=== PATIENT | male | born 1950 | race Caucasian/White ===

== ENCOUNTER → 2017-01-05 | Outpatient (CLI) | payer OTHER, MEDICARE | LOC: CIMAGING 08:46 | PROVIDERS: ATTEND Physician Assistant | DX: B19.20 Unspecified viral hepatitis C without hepatic coma (principal); R93.8 Abnormal findings on diagnostic imaging of other specified body structures | CPT/HCPCS: 76705-PO ==

== ENCOUNTER → 2017-01-26 | Outpatient (CLI) | payer OTHER, MEDICARE ==
[~2017-01-26] MED LIST: IOPAMIDOL (ISOVUE-300) 100 ML BTL ONE
== END ==
LOC: CIMAGING 09:15
PROVIDERS: ATTEND Physician Assistant
DX: R16.0 Hepatomegaly, not elsewhere classified (principal)
CPT/HCPCS: 74170; Q9967

== ENCOUNTER 2017-02-02 08:27 | Outpatient (CLI) | payer OTHER, MEDICARE ==
[2017-02-02] MEDS ORDERED: MIDAZOLAM 2 MG/2 ML VIAL ONE (08:50)
[2017-02-02] MEDS ORDERED: fentaNYL 100 MCG/2 ML INJ ONE (08:50)
[2017-02-02] MEDS ORDERED: LIDOCAINE 1% 300 MG/30 ML SDV ONE (09:19)
== END 2017-02-02 13:40 | disposition home or self-care (01) ==
LOC: FIMAGING 08:27
PROVIDERS: ATTEND Physician Assistant
PROC: 0FB03ZX Excision of Liver, Percutaneous Approach, Diagnostic (ICD-10-PCS; principal; 2017-02-02 10:45)
DX: D13.4 Benign neoplasm of liver (principal); B18.2 Chronic viral hepatitis C
CPT/HCPCS: 47000; 76942; J2250; J3010

== ENCOUNTER → 2017-03-02 | Outpatient (CLI) | payer OTHER, MEDICARE | LOC: BHCLAF 08:30 | PROVIDERS: ATTEND Internal Medicine | DX: I48.91 Unspecified atrial fibrillation (principal) | CPT/HCPCS: 93306-PO ==

== ENCOUNTER → 2017-07-20 | Outpatient (CLI) | payer OTHER, MEDICARE | LOC: CIMAGING 09:21 | PROVIDERS: ATTEND Internal Medicine | DX: R93.2 Abnormal findings on diagnostic imaging of liver and biliary tract (principal); B19.20 Unspecified viral hepatitis C without hepatic coma | CPT/HCPCS: 74170; Q9967 ==

== ENCOUNTER 2017-08-24 08:32 | Outpatient (CLI) | payer OTHER, MEDICARE ==
[2017-08-24] MEDS ORDERED: FLUMAZENIL 0.5 MG/5 ML MDV IVP PRN (09:14)
[2017-08-24] MEDS ORDERED: MIDAZOLAM 2 MG/2 ML VIAL IVP PRN (09:14)
[2017-08-24] MEDS ORDERED: NALOXONE HCL 0.4 MG/ML INJ IVP PRN (09:14)
[2017-08-24] MEDS ORDERED: fentaNYL 100 MCG/2 ML INJ IVP PRN (09:14)
[2017-08-24] MEDS ORDERED: NS 1,000 ML IV SCH (09:15)
[2017-08-24 09:40] VITALS: TEMP 99
--- NOTE | 2017-08-24 10:43 | PDGENHP ---
History & Physical Chief Complaint: HEPATIC MASS, HEP C History of Present Illness: ENLARGING HEPATIC MASS, HEP C Pertinent Past, Social, Family History: HEP C, AFIB, PRIOR HEP MASS BX, SMOKER, Relevant Physical Exam: RUL CRACKELS, SOFT ABDOMEN Cardiorespiratory Assessment: FEW CRACKELS, RRR,
--- NOTE | 2017-08-24 10:44 | PDPROPOC ---
Sedation Plan of Care Sedation Plan of Care: vital signs stable, mental status noted, patient educated of risks, benefits, alternatives, patient can tolerate sedation ASA Classification: ASA 2 Planned drugs: fentanyl, midazolam Mallampati Score: Class 1 Mallampati Reference Image: Patient passed 3-3-2 rule?: Yes
[2017-08-24 10:51] LABS: INR 1.04 (0.83-1.16); PROTIME(PATIENT) 13.8 SEC (12.0-15.0)
[2017-08-24] MEDS ORDERED: ONDANSETRON 4 MG/2 ML VIAL IVP PRN (12:00)
[2017-08-24] MEDS ORDERED: oxyCODONE IR 5 MG TAB PO PRN (12:00)
--- NOTE | 2017-08-24 12:05 | PDRADPN ---
Radiology Procedure Note Date of Procedure: 08/24/17 Radiologist: Dewayne Gamez Anesthesia: IV Sedation (VERSED AND FENTANYL), Local (Specify) (LIDOCAINE) Pre-op Diagnosis: LIVER MASS, HEP C Post-op Diagnosis: LIVER MASS, HEP C Indication: LIVER MASS INCREASING, HEP C Procedure: CT LIVER BIOPSY Finding(s): LIVER MASS BX RIGHT LOBE INFERIORLY Inf/Abcess present in the surg proc area at time of surgery?: No Depth: Superfical (Skin SQ) EBL: Minimal
[2017-08-24 13:33] VITALS: RESP 18
[2017-08-24 14:51] VITALS: BP 134/83; PULSE 69; O2SAT 92
== END 2017-08-24 15:12 | disposition home or self-care (01) ==
LOC: FIMAGING 08:32
PROVIDERS: ATTEND Internal Medicine
PROC: 0FB03ZX Excision of Liver, Percutaneous Approach, Diagnostic (ICD-10-PCS; principal; 2017-08-24 12:10)
DX: B18.2 Chronic viral hepatitis C (principal)
CPT/HCPCS: 47000; 77012; 88313; 99152; 99153; J2250; J3010; J2310

== ENCOUNTER → 2017-12-07 | Outpatient (CLI) | payer OTHER, MEDICARE | LOC: CIMAGING 09:13 | PROVIDERS: ATTEND Internal Medicine | DX: K76.89 Other specified diseases of liver (principal); R91.1 Solitary pulmonary nodule | CPT/HCPCS: 74177; Q9967 ==

== ENCOUNTER → 2018-05-24 | Outpatient (CLI) | payer OTHER, MEDICARE | LOC: CIMAGING 09:23 | DX: C22.0 Liver cell carcinoma (principal) | CPT/HCPCS: 74170; Q9967 ==

== ENCOUNTER → 2018-08-02 | Outpatient (CLI) | payer OTHER, MEDICARE | LOC: CIMAGING 11:19 | DX: C22.0 Liver cell carcinoma (principal) | CPT/HCPCS: 74160; Q9967; 82565-PO ==

== ENCOUNTER → 2018-11-29 | Outpatient (CLI) | payer OTHER, MEDICARE | LOC: CIMAGING 10:15 | DX: Z08 Encounter for follow-up examination after completed treatment for malignant neoplasm (principal); C22.0 Liver cell carcinoma; K74.60 Unspecified cirrhosis of liver; R91.8 Other nonspecific abnormal finding of lung field; J43.9 Emphysema, unspecified; M51.36 Other intervertebral disc degeneration, lumbar region; M51.37 Other intervertebral disc degeneration, lumbosacral region; M16.0 Bilateral primary osteoarthritis of hip; I70.0 Atherosclerosis of aorta | CPT/HCPCS: 71260; 74177; Q9967 ==